=== PATIENT | male | born 1965 | race Caucasian/White ===

== ENCOUNTER 2019-05-03 05:22 | Observation (INO) ==
[2019-05-03] MEDS ORDERED: DiphenhydrAMINE HCL 50 MG/ML VIAL ONE (05:35)
[2019-05-03] MEDS ORDERED: FAMOTIDINE 20MG/5ML IV PUSH IV ONE (05:35)
[2019-05-03] MEDS ORDERED: DEXAMETHASONE **PF** INJ 10 MG/ML VIAL ONE (05:35)
[2019-05-03 05:44] LABS: Basophils # (auto) 0.02 K/uL (0-0.2); Basophils % (auto) 0.2 %; Eosinophils # (auto) 0.19 K/uL (0-0.5); Eosinophils % (auto) 1.5 %; Hemoglobin 14.9 g/dL (14.0-18.0); Immature Granulocytes # (auto) 0.03 K/uL (0.00-0.02); Immature Granulocytes % (auto) 0.2 %; Lymphocytes # (auto) 2.07 K/uL (1.2-3.4); Mean Corpuscular Hgb Conc 33.9 g/dL (32-36); Mean Corpuscular Volume 97.6 fL (80-100); Mean Platelet Volume 9.5 fL (7.4-10.4); Monocytes # (auto) 1.08 K/uL (0.11-0.59); Monocytes % (auto) 8.4 %; Neutrophils # (auto) 9.52 K/uL (1.4-6.5); Neutrophils % (auto) 73.7 %; Platelet Count 268 K/uL (130-400); RDW Standard Deviation 46.8 fL (36.4-46.3); Red Blood Count 4.51 M/uL (4.7-6.1); White Blood Count 12.91 K/uL (4.8-10.8)
[2019-05-03 06:02] LABS: Albumin Level 4.1 gm/dl (3.4-5.0); BUN Creatinine Ratio 17.8 (10-20); Calcium 8.8 mg/dl (8.5-10.1); Creatinine Clr Calc Pharmacy 100.6 ml/min; Est GFR (African American) 114.8; Est GFR (Non-African American) 99.1; Potassium 4.3 mmol/L (3.5-5.1)
--- NOTE | 2019-05-03 06:03 | Emergency Department Note ---
History of Present Illness General Chief complaint: Allergic Reaction Stated complaint: SWOLLEN TONGUE Time Seen by Provider: 05/03/19 05:28 History of Present Illness Maximum Pain Intensity: 4 This is a 53-year-old male that presents to the emergency department via private vehicle with complaints of "swollen tongue". The patient states that he awoke around 0200 hrs. with a swollen tongue and neck. He notes no trouble breathing but does have some difficulty with swallowing. He takes lisinopril. He has had a similar episode in the past but was not nearly this extensive. He denies any pain. He denies any changes to foods or dietary habits. Home Medications Home Medications Medication Instructions Recorded Confirmed Type aspirin 81 mg PO QAM 05/03/19 05/03/19 History atorvastatin 80 mg PO DAILY 05/03/19 05/03/19 History clopidogrel 75 mg PO QAM 05/03/19 05/03/19 History ezetimibe 10 mg PO DAILY 05/03/19 05/03/19 History lisinopril 5 mg PO QAM 05/03/19 05/03/19 History metoprolol succinate 50 mg PO QAM 05/03/19 05/03/19 History mv,Ca,ora-scpx-MI-lycopene 1 tab PO DAILY 05/03/19 05/03/19 History [Centrum Men] nitroglycerin 0.4 mg SUBLINGUAL UD PRN 05/03/19 05/03/19 History pantoprazole 40 mg PO DAILY 05/03/19 05/03/19 History Allergies Allergy/AdvReac Type Severity Reaction Status Date / Time HENRY Inhibitors Allergy Severe angioedema Verified 05/03/19 07:04 Past Med/Surg History Medical History Dalal's esophagus (Chronic) Coronary artery disease DDD (degenerative disc disease), lumbar (Chronic) GERD (gastroesophageal reflux disease) (Chronic) Hyperlipidemia (Chronic) Hypertension (Chronic) Surgical History H/O esophagogastroduodenoscopy (Chronic) "06/20/14- Dalal's, [facility]" Social History Feels Safe at Home: Yes Smoking Status: Former smoker Review of Systems A total of 10 systems reviewed and were otherwise negative Physical Exam Vital Signs Vital Signs - 24 hr 05/03/19 05:25 05/03/19 05:49 05/03/19 06:21 Temperature 36.4 C L Temperature Source Oral Pulse Rate 84 Pulse Rate [Finger] 64 Pulse Rhythm [Finger] Regular Pulse Strength [Finger] Normal Respiratory Rate 20 15 Respiratory Effort / Characteristics Non-Labored Spontaneous Respiratory Depth Normal Respiratory Pattern Regular Blood Pressure 134/89 Blood Pressure [Left Arm] 125/82 Blood Pressure Mean 104 Blood Pressure Mean [Left Arm] 96 Blood Pressure Position [Left Arm] Lying Pulse Oximetry 96 98 96 Oxygen Delivery Method Room Air Room Air Sepsis Recent Fever Within 48 Hours No Sepsis Action Taken by Nursing No Action Required VITAL SIGNS - Vital signs and nursing notes were reviewed. Stable and afebrile. GENERAL -53-year-old male appearing stated age who is in no acute distress. Communicates well with provider and answers questions appropriately. SKIN - Without rashes. Mild erythematous hue to the neck favoring the right side. HEAD - NC/AT. EYES - Sclera anicteric. EARS - No deformities of external structures noted on gross examination bilaterally. NOSE - Midline and without cyanosis. No epistaxis or purulent drainage noted. MOUTH/OROPHARYNX - Without perioral cyanosis. The patient's tongue is edematous, with edema that is inferior to the tongue as well. Airway is patent. There is no lip edema or posterior pharyngeal edema. NECK - Neck with FROM. Supple to palpation. There is a fullness to the anterior neck without any definite lymphadenopathy. No nuchal rigidity. LUNGS - Chest wall symmetric without accessory muscle use, intercostals retractions, or central cyanosis. Normal vesicular breath sounds CTA B/L. No wheezes, rales, or rhonchi appreciated. CARDIAC - RRR with S1/S2. No murmur, rubs, or gallops appreciated. Course Administered Medications Discontinued Medications Dexamethasone Sodium Phosphate (Decadron Pf) Confirm Administered Dose 10 mg .ROUTE .STK-MED ONE Stop: 05/03/19 05:36 Last Admin: 05/03/19 05:47 Dose: 10 mg Documented by: [id number] Diphenhydramine HCl (Benadryl) Confirm Administered Dose 50 mg .ROUTE .STK-MED ONE Stop: 05/03/19 05:36 Last Admin: 05/03/19 05:47 Dose: 50 mg Documented by: [id number] Famotidine (Pepcid 20mg Iv Push) Confirm Administered Dose 20 mg IV .STK-MED ONE Stop: 05/03/19 05:36 Last Admin: 05/03/19 05:48 Dose: 20 mg Documented by: [id number] Medical Decision Making Laboratory Data Result diagrams: 05/03/19 05:32 05/03/19 05:32 Lab Results 05/03/19 05/03/19 05/03/19 Range/Units 05:32 05:32 05:32 WBC 12.91 H (4.8-10.8) K/uL RBC 4.51 L (4.7-6.1) M/uL Hgb 14.9 (14.0-18.0) g/dL POC Hgb (14.0-18.0) g/dl Hct 44.0 (42-52) % POC Hct (42-52) % MCV 97.6 (80-100) fL MCH 33.0 (25-34) pg MCHC 33.9 (32-36) g/dL RDW Std Deviation 46.8 H (36.4-46.3) fL RDW Coeff of Josefina 13.0 (11.5-14.5) % Plt Count 268 (130-400) K/uL MPV 9.5 (7.4-10.4) fL Immature Gran % (Auto) 0.2 % Neut % (Auto) 73.7 % Lymph % (Auto) 16.0 % [place] % (Auto) 8.4 % Eos % (Auto) 1.5 % Baso % (Auto) 0.2 % Immature Gran # (Auto) 0.03 H (0.00-0.02) K/uL Neut # (Auto) 9.52 H (1.4-6.5) K/uL Lymph # (Auto) 2.07 (1.2-3.4) K/uL [place] # (Auto) 1.08 H (0.11-0.59) K/uL Eos # (Auto) 0.19 (0-0.5) K/uL Baso # (Auto) 0.02 (0-0.2) K/uL POC Sodium (135-144) mEq/L Sodium 140 (136-145) mmol/L POC Potassium (3.3-5.0) mEq/L Potassium 4.3 (3.5-5.1) mmol/L POC Chloride (101-112) mEq/L Chloride 108 H (98-107) mmol/L Carbon Dioxide 28 (21-32) mmol/L POC Total CO2 (24-31) mEq/l Anion Gap 4.0 (3-11) POC Anion Gap (16-25) mmol/L POC BUN (7-18) mg/dl BUN 15 (7-18) mg/dl Creatinine 0.83 (0.6-1.4) mg/dl POC Creatinine (0.6-1.3) mg/dl Est Cr Clr Drug Dosing 100.6 ml/min Est GFR ( Amer) 114.8 Est GFR (Non-Af Amer) 99.1 BUN/Creatinine Ratio 17.8 (10-20) Glucose 114 H (70-99) mg/dl POC Glucose (other) (70-99) mg/dl Estimat Average Glucose mg/dl Hemoglobin A1c (4.5-5.6) % Calcium 8.8 (8.5-10.1) mg/dl POC Ioniz Calcium Shabbir (1.12-1.32) mmol/l Magnesium 2.0 (1.8-2.4) mg/dl Total Bilirubin 0.5 (0.2-1) mg/dl AST 20 (15-37) U/L ALT 42 (12-78) U/L Alkaline Phosphatase 65 (45-117) U/L Total Protein 7.3 (6.4-8.2) gm/dl Albumin 4.1 (3.4-5.0) gm/dl Globulin 3.2 (2.5-4.0) gm/dl Albumin/Globulin Ratio 1.3 (0.9-2) TSH 1.680 (0.300-4.500) uIu/ml 05/03/19 05/03/19 Range/Units 05:32 05:45 WBC (4.8-10.8) K/uL RBC (4.7-6.1) M/uL Hgb (14.0-18.0) g/dL POC Hgb 13.6 L (14.0-18.0) g/dl Hct (42-52) % POC Hct 40 L (42-52) % MCV (80-100) fL MCH (25-34) pg MCHC (32-36) g/dL RDW Std Deviation (36.4-46.3) fL RDW Coeff of Josefina (11.5-14.5) % Plt Count (130-400) K/uL MPV (7.4-10.4) fL Immature Gran % (Auto) % Neut % (Auto) % Lymph % (Auto) % [place] % (Auto) % Eos % (Auto) % Baso % (Auto) % Immature Gran # (Auto) (0.00-0.02) K/uL Neut # (Auto) (1.4-6.5) K/uL Lymph # (Auto) (1.2-3.4) K/uL [place] # (Auto) (0.11-0.59) K/uL Eos # (Auto) (0-0.5) K/uL Baso # (Auto) (0-0.2) K/uL POC Sodium 140 (135-144) mEq/L Sodium (136-145) mmol/L POC Potassium 4.2 (3.3-5.0) mEq/L Potassium (3.5-5.1) mmol/L POC Chloride 105 (101-112) mEq/L Chloride (98-107) mmol/L Carbon Dioxide (21-32) mmol/L POC Total CO2 27 (24-31) mEq/l Anion Gap (3-11) POC Anion Gap 14.0 L (16-25) mmol/L POC BUN 14 (7-18) mg/dl BUN (7-18) mg/dl Creatinine (0.6-1.4) mg/dl POC Creatinine 0.8 (0.6-1.3) mg/dl Est Cr Clr Drug Dosing ml/min Est GFR ( Amer) Est GFR (Non-Af Amer) BUN/Creatinine Ratio (10-20) Glucose (70-99) mg/dl POC Glucose (other) 107 H (70-99) mg/dl Estimat Average Glucose 126 mg/dl Hemoglobin A1c 6.0 H (4.5-5.6) % Calcium (8.5-10.1) mg/dl POC Ioniz Calcium Shabbir 1.21 (1.12-1.32) mmol/l Magnesium (1.8-2.4) mg/dl Total Bilirubin (0.2-1) mg/dl AST (15-37) U/L ALT (12-78) U/L Alkaline Phosphatase (45-117) U/L Total Protein (6.4-8.2) gm/dl Albumin (3.4-5.0) gm/dl Globulin (2.5-4.0) gm/dl Albumin/Globulin Ratio (0.9-2) TSH (0.300-4.500) uIu/ml MDM Narrative Patient was seen and evaluated as above in room B3. Review was performed of nursing notes and vital signs. After obtaining a thorough history and physical examination the above work up was performed. He presents to us today with tongue swelling. He takes lisinopril. This is felt to likely be angioedema. IV access was established. He was given fluids, Decadron, Benadryl and Pepcid. There is no evidence of airway edema at this time or need for intubation. Given the degree of edema, and presentation I do believe that further evaluation in the inpatient setting is warranted. CBC reveals slight leukocytosis without any marked anemia. There is no emergent metabolic disturbance. Case discussed with the attending physician as well as the hospitalist, Dr. Hawkins. I do not suspect Mook's angina. Please refer to further documentation regarding his stay. In the evaluation and treatment of this patient, the following differential diagnoses were considered: Periapical Abscess, Osteonecrosis of the Jaw, Dental Fracture, anaphylaxis, angioedema, dental Caries, Mook's Angina, Vincent's Angina, Facial Cellulitis. Attending Attestation: I Celestino Harmon MD independently saw and evaluated this patient and agree with history and physical is otherwise documented by the physician senior agricultural assistant. See their note for full details. Tongue swelling edema. Protecting airway. Seems consistent with angio edema, ?lisinopril as cause. Will be further observed. Impression & Plan Angioedema Discharge Plan Visit Data Chief Complaint: Allergic Reaction Stated Complaint: SWOLLEN TONGUE ED Provider: Celestino Harmon ED Midlevel Provider: Erwin Severino Discharge Problem: Angioedema Patient Disposition: Admitted As Inpatient Condition: Good Discharge Instructions Interventions: ED Discharge Assessment Last Done: 05/03/19 07:02 Forms Stand Alone Forms: My [facility] Prescriptions Prescriptions: No Action atorvastatin 80 mg tablet 80 mg PO DAILY RF: 0 metoprolol succinate 50 mg tablet extended release 24 hr 50 mg PO QAM RF: 0 clopidogrel 75 mg tablet 75 mg PO QAM RF: 0 aspirin 81 mg tablet,delayed release (DR/EC) 81 mg PO QAM RF: 0 pantoprazole 40 mg tablet,delayed release (DR/EC) 40 mg PO DAILY RF: 0 lisinopril 5 mg tablet 5 mg PO QAM RF: 0 ezetimibe 10 mg tablet 10 mg PO DAILY RF: 0 nitroglycerin 0.4 mg Tablet, Sublingual 0.4 mg sublingual UD PRN (Reason: Chest Pain) RF: 0 Centrum Men 8 mg iron- 200 mcg-600 mcg Tablet 1 tab PO DAILY RF: 0 Referrals Referrals: Jean Soares DO [Primary Care Provider] -
[2019-05-03 06:04] LABS: iSTAT Creatinine 0.8 mg/dl (0.6-1.3); iSTAT Hemoglobin 13.6 g/dl (14.0-18.0); iSTAT Ionized Calcium 1.21 mmol/l (1.12-1.32); iSTAT Potassium 4.2 mEq/L (3.3-5.0)
[2019-05-03 06:05] LABS: Albumin Globulin Ratio 1.3 (0.9-2); Bilirubin,Total 0.5 mg/dl (0.2-1); Globulin 3.2 gm/dl (2.5-4.0); Total Protein 7.3 gm/dl (6.4-8.2)
[2019-05-03 06:34] LABS: Thyroid Stimulating Hormone 1.68 uIu/ml (0.300-4.500)
[2019-05-03 06:42] LABS: Estimated Average Glucose 126 mg/dl
--- NOTE | 2019-05-03 06:45 | History & Physical Report ---
Date of Service May 03, 2019 Assessment & Plan (1) Angioedema: Possible recurrent episode hx ACEI rx CAD status post stent hypertension, stable hyperlipidemia on statin Rx Dalal's esophagus stable on PPI regimen ongoing tobacco abuse Hyperglycemia, possible prediabetes, hemoglobin A1c of 5.9 from 2016 OBS Medical telemetry Stop HENRY inhibitor and add to allergy/ADR list Monitor for airway obstruction. Clear liquids for now until tongue swelling improved. Allergology telephone consultation regarding ACEI angioedema. Basal insulin, ISS BG goal [id number], update hemoglobin A1c Nicotine patch PRN DVT prophylaxis. Lovenox subcu Full code Case discussed with Dr. Vinson ([facility] [place]). He recommends Prednisone 40 mg daily- 4day course without need for taper. Discharge patient with at least 2 tablets of Prednisone 40 mg, 1 tablet to be taken as needed for recurrence of angioedema at home prior to ER consultation. Outpatient Allergy Medicine referral if with recurrent symptoms outpatient after 1 month. History of Present Illness Chief Complaint: tongue Swelling Primary Care Provider: Jean Soares DO History obtained from patient, family, and records. Medical history significant for CAD status post stent, hypertension, hyperlipidemia, Dalal's esophagus, ongoing tobacco abuse. Recent confinement May 2015 under Cardiology service for abnormal stress test. Patient underwent RICARDO placement for LAD lesion on cardiac cath. Patient woke up at 2 AM this morning with tongue swelling. No chest pain, no S OB. No rash, no pruritus symptoms. No recollection of recent tongue trauma. Patient recalls about 2 minor, spontaneously resolving tongue swelling episodes in the past. 2 brothers have been taken off there HENRY inhibitor medications due to tongue swelling reactions as per patient. At the ER, patient received IV Decadron, Benadryl, and Famotidine for possible angioedema. Tongue swelling somewhat improved as per patient. Medical History as above Surgical History : Knee surgery Family History : Angioedema, heart disease Personal/Social history : Few cigarettes from time to time, occasional EtOH intake, property maintenance work Allergies Allergy/AdvReac Type Severity Reaction Status Date / Time HENRY Inhibitors Allergy Severe angioedema Verified 05/03/19 07:04 Home Medications Home Medications Medication Instructions Recorded Confirmed Type aspirin 81 mg PO QAM 05/03/19 05/03/19 History atorvastatin 80 mg PO DAILY 05/03/19 05/03/19 History clopidogrel 75 mg PO QAM 05/03/19 05/03/19 History ezetimibe 10 mg PO DAILY 05/03/19 05/03/19 History lisinopril 5 mg PO QAM 05/03/19 05/03/19 History metoprolol succinate 50 mg PO QAM 05/03/19 05/03/19 History mv,Ca,yya-swup-OC-lycopene 1 tab PO DAILY 05/03/19 05/03/19 History [Centrum Men] nitroglycerin 0.4 mg SUBLINGUAL UD PRN 05/03/19 05/03/19 History pantoprazole 40 mg PO DAILY 05/03/19 05/03/19 History Past Med/Surg History Medical History Dalal's esophagus (Chronic) Coronary artery disease DDD (degenerative disc disease), lumbar (Chronic) GERD (gastroesophageal reflux disease) (Chronic) Hyperlipidemia (Chronic) Hypertension (Chronic) Surgical History H/O esophagogastroduodenoscopy (Chronic) "06/20/14- [facility], HH" Social History Preferred Language: Ethiopian Communication Ability: Effective Manager Branch Required: No Beliefs That Will Affect Care: None Current Living Situation: Spouse Other Information That Helps Us Care for You: No Feels Safe at Home: Yes Safety Concerns: Feels Safe At This Time Smoking Status: Former smoker Do You Dip or Chew Tobacco: No ; Second Hand Exposure: No ; Tobacco Cessation Education Requested by Patient: No Hx Alcohol Use: Yes Hx Substance Use: No Review of Systems Review of Systems: As per HPI, all 10 systems reviewed, all other ROS negative Physical Exam Physical Exam: GENERAL: Comfortable, no respiratory distress, no stridor, dysarthric speech SKIN: Normal color, warm HEENT: Alopecia, pink palpebral conjunctivae, no ptosis, moist buccal mucosa, tongue/sublingual swelling, no carious teeth NECK : Supple, no tenderness CHEST : CTA, no tenderness HEART : RRR, no obvious murmurs ABDOMEN: Some distention, nontender EXTREMITIES : No LE swelling/tenderness, no other conspicuous deformities noted NEUROLOGIC : Coherent, no facial asymmetry, no other gross focality Results & Data Vital Signs (Past 12 Hours) Vital Signs Temp Pulse Pulse Resp BP BP Pulse Ox 05/03/19 06:21 64 15 125/82 96 05/03/19 05:49 98 05/03/19 05:25 36.4 C L 84 20 134/89 96 Laboratory Results Laboratory Results WBC 12.91 K/uL (4.8-10.8) H 05/03/19 05:32 RBC 4.51 M/uL (4.7-6.1) L 05/03/19 05:32 Hgb 14.9 g/dL (14.0-18.0) 05/03/19 05:32 POC Hgb 13.6 g/dl (14.0-18.0) L 05/03/19 05:45 Hct 44.0 % (42-52) 05/03/19 05:32 POC Hct 40 % (42-52) L 05/03/19 05:45 MCV 97.6 fL (80-100) 05/03/19 05:32 MCH 33.0 pg (25-34) 05/03/19 05:32 MCHC 33.9 g/dL (32-36) 05/03/19 05:32 RDW Std Deviation 46.8 fL (36.4-46.3) H 05/03/19 05:32 RDW Coeff of Josefina 13.0 % (11.5-14.5) 05/03/19 05:32 Plt Count 268 K/uL (130-400) 05/03/19 05:32 MPV 9.5 fL (7.4-10.4) 05/03/19 05:32 Immature Gran % (Auto) 0.2 % 05/03/19 05:32 Neut % (Auto) 73.7 % 05/03/19 05:32 Lymph % (Auto) 16.0 % 05/03/19 05:32 [place] % (Auto) 8.4 % 05/03/19 05:32 Eos % (Auto) 1.5 % 05/03/19 05:32 Baso % (Auto) 0.2 % 05/03/19 05:32 Immature Gran # (Auto) 0.03 K/uL (0.00-0.02) H 05/03/19 05:32 Neut # (Auto) 9.52 K/uL (1.4-6.5) H 05/03/19 05:32 Lymph # (Auto) 2.07 K/uL (1.2-3.4) 05/03/19 05:32 [place] # (Auto) 1.08 K/uL (0.11-0.59) H 05/03/19 05:32 Eos # (Auto) 0.19 K/uL (0-0.5) 05/03/19 05:32 Baso # (Auto) 0.02 K/uL (0-0.2) 05/03/19 05:32 POC Sodium 140 mEq/L (135-144) 05/03/19 05:45 Sodium 140 mmol/L (136-145) 05/03/19 05:32 POC Potassium 4.2 mEq/L (3.3-5.0) 05/03/19 05:45 Potassium 4.3 mmol/L (3.5-5.1) 05/03/19 05:32 POC Chloride 105 mEq/L (101-112) 05/03/19 05:45 Chloride 108 mmol/L (98-107) H 05/03/19 05:32 Carbon Dioxide 28 mmol/L (21-32) 05/03/19 05:32 POC Total CO2 27 mEq/l (24-31) 05/03/19 05:45 Anion Gap 4.0 (3-11) 05/03/19 05:32 POC Anion Gap 14.0 mmol/L (16-25) L 05/03/19 05:45 POC BUN 14 mg/dl (7-18) 05/03/19 05:45 BUN 15 mg/dl (7-18) 05/03/19 05:32 Creatinine 0.83 mg/dl (0.6-1.4) 05/03/19 05:32 POC Creatinine 0.8 mg/dl (0.6-1.3) 05/03/19 05:45 Est Cr Clr Drug Dosing 100.6 ml/min 05/03/19 05:32 Est GFR ( Amer) 114.8 05/03/19 05:32 Est GFR (Non-Af Amer) 99.1 05/03/19 05:32 BUN/Creatinine Ratio 17.8 (10-20) 05/03/19 05:32 Glucose 114 mg/dl (70-99) H 05/03/19 05:32 POC Glucose (other) 107 mg/dl (70-99) H 05/03/19 05:45 Estimat Average Glucose 126 mg/dl 05/03/19 05:32 Hemoglobin A1c 6.0 % (4.5-5.6) H 05/03/19 05:32 Calcium 8.8 mg/dl (8.5-10.1) 05/03/19 05:32 POC Ioniz Calcium Shabbir 1.21 mmol/l (1.12-1.32) 05/03/19 05:45 Magnesium 2.0 mg/dl (1.8-2.4) 05/03/19 05:32 Total Bilirubin 0.5 mg/dl (0.2-1) 05/03/19 05:32 AST 20 U/L (15-37) 05/03/19 05:32 ALT 42 U/L (12-78) 05/03/19 05:32 Alkaline Phosphatase 65 U/L (45-117) 05/03/19 05:32 Total Protein 7.3 gm/dl (6.4-8.2) 05/03/19 05:32 Albumin 4.1 gm/dl (3.4-5.0) 05/03/19 05:32 Globulin 3.2 gm/dl (2.5-4.0) 05/03/19 05:32 Albumin/Globulin Ratio 1.3 (0.9-2) 05/03/19 05:32 TSH 1.680 uIu/ml (0.300-4.500) 05/03/19 05:32
[2019-05-03] MEDS ORDERED: NITROGLYCERIN SL 0.4 MG/TAB TAB SL PRN (07:21)
[2019-05-03] MEDS ORDERED: LACTATED RINGER'S 1,000 ML IV ONE (07:21)
[2019-05-03] MEDS ORDERED: TRAMADOL HCL 50 MG TABLET PO PRN (07:21)
[2019-05-03] MEDS ORDERED: PROMETHAZINE HCL 12.5 MG in SODIUM CHLORIDE 0.9% 50 ML IV PRN (07:21)
[2019-05-03] MEDS ORDERED: DiphenhydrAMINE HCL 50 MG/ML VIAL IV PRN (07:21)
[2019-05-03] MEDS ORDERED: MoRPHine SULFATE 4 MG/ML 1 ML CARP\\VIAL IV PRN (07:21)
[2019-05-03] MEDS ORDERED: ACETAMINOPHEN 325 MG TAB PO PRN (07:21)
[2019-05-03] MEDS ORDERED: CLOPIDOGREL BISULFATE 75 MG TAB PO SCH (09:00)
[2019-05-03] MEDS ORDERED: ATORVASTATIN 40 MG TAB PO SCH (09:00)
[2019-05-03] MEDS ORDERED: PANTOprazole 40 MG TAB PO SCH (09:00)
[2019-05-03] MEDS ORDERED: METOPROLOL SUCC 50MG EXT REL TAB PO SCH (09:00)
[2019-05-03] MEDS ORDERED: ENOXAPARIN INJ 30 MG/0.3 ML SYR SQ SCH (09:00)
[2019-05-03] MEDS ORDERED: CEROVITE ADV FORMULA TAB PO SCH (09:00)
[2019-05-03] MEDS ORDERED: ASPIRIN 81 MG ECTAB PO SCH (09:00)
[2019-05-03] MEDS ORDERED: EZETIMIBE 10 MG TABLET PO SCH (09:00)
[2019-05-03] MEDS ORDERED: DEXTROSE 50% 50 ML SYRINGE IV PRN (09:32)
[2019-05-03] MEDS ORDERED: GLUCOSE 10 TABS/TUBE PO PRN (09:32)
[2019-05-03] MEDS ORDERED: GLUCAGON FOR INJ 1 MG VIAL SQ PRN (09:32)
[2019-05-03] MEDS ORDERED: CARBOHYDRATES FOR HYPOGLYCEMIA PO PRN (09:32)
[2019-05-03] MEDS ORDERED: GLUCOSE 40% GEL 15 GM TUBE PO PRN (09:32)
[2019-05-03] MEDS ORDERED: INSULIN GLARGINE SOLOSTAR 100 UNITS/ML 3 ML PEN SC ONE (10:00)
[2019-05-03] MEDS: INSULIN ASPART 100 UNITS/ML 3 ML PEN SC SCH ×2 (12:14→17:38)
--- NOTE | 2019-05-03 14:39 | Communication Note ---
Date of Service: May 03, 2019 Pt was seen and examined Lying in bed with no distress with with at bedside Pt said that he feels fine He said that his breath is fine He said that his tongue swelling improved significantly Tolerated clear liquid diet without problem Denies any chest pain, palpitation, dizziness and SOB Exam General- No acute distress Head- atraumatic Eyes- PERRL, EOMI, ENT- oropharynx clear, tongue midline, no lips swelling, no macroglossia Neck- supple, no JVD Lungs- clear to auscultation Heart- regular rhythm; no murmur Abdomen- normal bowel sounds, soft, nontender Extremities- no calf tenderness Neuro- alert, oriented x 3; PERRL, EOMI; no facial palsy; no dysarthria Skin- warm & dry A/P Angioedema Possible related to ACEI Received IV Solumedrol Benadryl and Pepcid in the ER HENRY inhibitor discontinued and added to allergy/ADR list No signs of airway obstruction Admitting hospitalist team discussed case with Dr. Vinson ([facility] [place] allergologist ) He recommends Prednisone 40 mg daily for 4 days day course without need for taper. Discharge patient with at least 2 extra tablets of Prednisone 40 mg, 1 tablet to be taken as needed for recurrence of angioedema at home prior to ER consultation. Outpatient Allergy Medicine referral if develops any recurrent symptoms outpatient after 1 month. Tolerated clear liquid, advanced to to full liquid diet Pt would like to go home later, will reassess later today CAD S/P stent Continue aspirin/statin/plavix and metoprolol Stable HTN BP stable Lisinopril discontinued Continue metoprolol If BP elevates, consider to add a low dose CCB Continue monitor BP Tobacco use Counseling on smoking cessation Nicotine patch PRN DVT prophylaxis on Lovenox subcu CODE STATUS Full code
--- NOTE | 2019-05-04 08:49 | Discharge Summary ---
Date of Service May 03, 2019 Admission HPI Per Admitting Provider History obtained from patient, family, and records. Medical history significant for CAD status post stent, hypertension, hyperlipidemia, Dalal's esophagus, ongoing tobacco abuse. Recent confinement May 2015 under Cardiology service for abnormal stress test. Patient underwent RICARDO placement for LAD lesion on cardiac cath. Patient woke up at 2 AM this morning with tongue swelling. No chest pain, no S OB. No rash, no pruritus symptoms. No recollection of recent tongue trauma. Patient recalls about 2 minor, spontaneously resolving tongue swelling episodes in the past. 2 brothers have been taken off there HENRY inhibitor medications due to tongue swelling reactions as per patient. At the ER, patient received IV Decadron, Benadryl, and Famotidine for possible angioedema. Tongue swelling somewhat improved as per patient. Medical History as above Surgical History : Knee surgery Family History : Angioedema, heart disease Personal/Social history : Few cigarettes from time to time, occasional EtOH intake, property maintenance work Admission Exam Per Admitting Provider GENERAL: Comfortable, no respiratory distress, no stridor, dysarthric speech SKIN: Normal color, warm HEENT: Alopecia, pink palpebral conjunctivae, no ptosis, moist buccal mucosa, tongue/sublingual swelling, no carious teeth NECK : Supple, no tenderness CHEST : CTA, no tenderness HEART : RRR, no obvious murmurs ABDOMEN: Some distention, nontender EXTREMITIES : No LE swelling/tenderness, no other conspicuous deformities noted NEUROLOGIC : Coherent, no facial asymmetry, no other gross focality Principal Diagnosis Angioedema Coronary artery disease Hypertension Tobacco use Discharge Exam General- No acute distress Head- atraumatic Eyes- PERRL, EOMI, ENT- oropharynx clear, tongue midline, no lips swelling, no macroglossia Neck- supple, no JVD Lungs- clear to auscultation Heart- regular rhythm; no murmur Abdomen- normal bowel sounds, soft, nontender Extremities- no calf tenderness Neuro- alert, oriented x 3; PERRL, EOMI; no facial palsy; no dysarthria Skin- warm & dry Discharge Data Allergies Allergy/AdvReac Type Severity Reaction Status Date / Time HENRY Inhibitors Allergy Severe angioedema Verified 05/03/19 07:04 Consultations 05/03/19 06:01 ED Decision to Admit Stat Hospital Course (1) Angioedema: Angioedema Possible related to ACEI Received IV Solumedrol Benadryl and Pepcid in the ER HENRY inhibitor discontinued and added to allergy/ADR list No signs of airway obstruction Admitting hospitalist team discussed case with Dr. Vinson ([facility] allergologist ) He recommends Prednisone 40 mg daily for 4 days day course without need for taper. Discharge patient with at least 2 extra tablets of Prednisone 40 mg, 1 tablet to be taken as needed for recurrence of angioedema at home prior to ER consultation. Outpatient Allergy Medicine referral if develops any recurrent symptoms outpatient after 1 month. Tolerated clear liquid, advanced to to full liquid diet Pt would like to go home later, will reassess later today CAD S/P stent Continue aspirin/statin/plavix and metoprolol Stable HTN BP stable Lisinopril discontinued Continue metoprolol If BP elevates, consider to add a low dose CCB Continue monitor BP Tobacco use Counseling on smoking cessation Nicotine patch PRN DVT prophylaxis on Lovenox subcu CODE STATUS Full code Total Time Total Time Spent Total Time Spent (In Minutes): 35 miinutes Total Time Includes: Examination of the Patient, Discharge Planning, Medication Reconciliation, Communication With Other Providers and Other Discharge Plan Discharge Items Patient Disposition: Home - Self-Care Reason For Visit: ANGIOEDEMA Discharge Diagnosis: Angioedema Coronary artery disease hypertension Tobacco use Condition on Discharge: Good Activity: Resume your previous activity Activity Comment: as tolerated Non-emergency contact: Primary Care Provider Call non-emergency contact if: you have any medication questions Follow-up/Referrals: Jean Soares, [Primary Care Provider] - Diet: Heart Healthy Diet Texture: Mechanical soft (ground) Addtl Attending Provider Instructions: Follow up with your primary care provider within 1 week (Please call to schedule for the follow up appointment) Continue prednisone 40mg for 4 more days (Keep 2 extra 40mg tablets with you in case if you develop recurrence angioedema at home to take a tablet before coming to the ER) Continue soft diet for now and advance as tolerated Discontinue Lisinopril Continue monitor your blood pressure Your physician will add another blood pressure medication if you blood pressure elevates Seek medical attention if your symptoms reoccur (such as tongue swelling, lips swelling, difficulty to breath or to swallow) You will need to follow up with an allergy doctor if your symptoms reoccur. Pending Studies at Discharge: No Stand-Alone Forms: My [facility], Smoking Cessation Medications and DC Order Prescriptions: New prednisone 20 mg tablet 40 mg PO DAILY Qty: 12 RF: 0 Continued atorvastatin 80 mg tablet 80 mg PO DAILY RF: 0 metoprolol succinate 50 mg tablet extended release 24 hr 50 mg PO QAM RF: 0 clopidogrel 75 mg tablet 75 mg PO QAM RF: 0 aspirin 81 mg tablet,delayed release (DR/EC) 81 mg PO QAM RF: 0 pantoprazole 40 mg tablet,delayed release (DR/EC) 40 mg PO DAILY RF: 0 ezetimibe 10 mg tablet 10 mg PO DAILY RF: 0 nitroglycerin 0.4 mg Tablet, Sublingual 0.4 mg sublingual UD PRN (Reason: Chest Pain) RF: 0 Centrum Men 8 mg iron- 200 mcg-600 mcg Tablet 1 tab PO DAILY RF: 0 Discontinued lisinopril 5 mg tablet 5 mg PO QAM RF: 0 Discharge Orders: Discharge Order (Routine); Ordered 05/03/19 Ordered By: Yana Boateng/Other Patient Handouts: Prediabetes, A1C Admission Data Admit Date/Time: 05/03/19 06:47 Attending Provider: Yana Alejandra Admit Provider: Javy Hawkins Primary Care Provider: Jean Soares Other Providers: Javy Hawkins Other Interventions: Discharge Summary Assessment (RN) Last Done: 05/03/19 19:06 DC Date/Time DO NOT enter until pt leaves facility: 05/03/19 19:28
[2019-05-04] MEDS ORDERED: INSULIN GLARGINE SOLOSTAR 100 UNITS/ML 3 ML PEN SQ SCH (09:00)
[2019-05-04] MEDS ORDERED: predniSONE 20 MG TAB PO SCH (09:00)
== END 2019-05-03 19:28 | disposition home or self-care (01) ==
LOC: ED 05:22 → 2N 05:22